=== PATIENT | female | born 1995 | race Caucasian/White ===

== ENCOUNTER → 2021-11-17 20:15 | Observation (INO) | END | disposition home or self-care (01) | LOC: 1NENULAB | PROVIDERS: ADMIT Student in an Organized Health Care Education/Training Program; ATTEND Student in an Organized Health Care Education/Training Program ==

== ENCOUNTER 2021-11-21 14:59 | Observation (INO) | END 2021-11-25 14:59 | disposition home or self-care (01) | LOC: 1NENULAB → 1NENUOBS 11-22 10:06 | PROVIDERS: ADMIT Obstetrics & Gynecology; ATTEND Obstetrics & Gynecology ==

== ENCOUNTER → 2021-11-23 05:10 | Observation (INO) ==
[2021-11-23 05:07] LABS: Amorphous Sediment,Urine Few per hpf (None-Few); Bacteria,Urine Few per hpf (None-Few); Bilirubin,Urine Negative (Negative); Blood,Urine Moderate (Negative); Clarity,Urine Turbid (Clear); Color,Urine Light-Yellow (Yellow); Glucose,Urine (UA) Normal (Normal); Ketones,Urine >150 mg/dL (Negative); Leukocyte Esterase,Urine Small (Negative); Mucus,Urine Few per lpf (None-Few); Nitrite,Urine Negative (Negative); Protein,Urine 30 mg/dL (Neg-Trace); RBC,Urine 0-3 per hpf (0-3); Specific Gravity,Urine 1.013 (1.010-1.025); Sperm,Urine Present per hpf (None Seen); Squamous Epithelial Cell,Urine Moderate per hpf (None-Few); Transitional Epi Cells,Urine Few per hpf (None-Few); Urobilinogen,Urine Normal (Normal)
== END | disposition home or self-care (01) ==
LOC: 1NENULAB
PROVIDERS: ADMIT Obstetrics & Gynecology; ATTEND Obstetrics & Gynecology

== ENCOUNTER 2021-11-26 01:26 | Inpatient (IN) ==
[~2021-11-26 01:26] MED LIST: *HR* Nalbuphine 10 MG/ML AMPUL IV PRN; Azithromycin 500 MG in 0.9 % Sodium Chloride 250 ML IVPB PRN; Famotidine 20 MG/2 ML VIAL IVP PRN; Lidocaine 1% 20 ML MDV INFILT PRN; Metoclopramide 10 MG/2 ML VIAL IVP PRN; Naloxone 0.4 MG/ML INJ IVP PRN; Ondansetron 4 MG/2 ML VIAL IVP PRN
[2021-11-26] MEDS ORDERED: Ringers Solution, Lactated 1,000 ML IVC SCH (01:30)
[2021-11-26] MEDS ORDERED: Epidural Premix (fent/bupiv) 110 ML EP ONE (02:01)
[2021-11-26 02:47] LABS: Amphetamine Screen,Urine Negative ng/mL (Cutoff=1000); Barbiturate Screen,Urine Negative ng/mL (Cutoff=200); Benzodiazepines Screen,Urine Negative ng/mL (Cutoff=200); Cannabinoid Screen,Urine Negative ng/mL (Cutoff = 50); Cocaine Screen,Urine Negative ng/mL (Cutoff= 300); Opiate Screen,Urine Negative ng/mL (Cutoff=300); Phencyclidine Screen,Urine Negative ng/mL (Cutoff=25)
[2021-11-26 02:50] LABS: Basophils % 0.3 %; Eosinophils % 0.4 %; Immature Granulocytes % 1.7 % (0-4); Lymphocytes # 1.5 K/mcL (0.6-4.6); Lymphocytes % 15.8 %; Mean Corpuscular HGB Conc 32.3 g/dL (31.6-35.5); Mean Corpuscular Hemoglobin 27.5 pg (28.0-33.3); Mean Corpuscular Volume 85.4 fL (83.0-100.0); Mean Platelet Volume 10.5 fL (9.4-12.4); Monocytes # 0.5 K/mcL (0.0-1.3); Monocytes % 5.1 %; Neutrophils # 7.4 K/mcL (1.6-8.9); Platelet Count 202 K/mcL (140-400); Red Blood Count 3.63 M/mcL (3.82-4.97); Red Cell Distribution Width 17.1 % (11.5-14.5); Segmented Neutrophils % 76.7 %; White Blood Count 9.7 K/mcL (4.3-11.1)
[2021-11-26] MEDS ORDERED: EPHEDrine 50 MG/ML VIAL IVP PRN (03:06)
[2021-11-26] MEDS ORDERED: Epidural Premix (fent/bupiv) 110 ML EP SCH (03:15)
[2021-11-26] MEDS ORDERED: Oxytocin 30 UNIT/503 ML BAG IVC ONE (07:31)
[2021-11-26] MEDS ORDERED: OXYTOCIN/RINGERS LACTATE 10 UNIT/166.6 ML BAG IVC ONE (12:22)
[2021-11-26] MEDS ORDERED: Benzocaine/Menthol 56 GM AEROSOL SPRAY TP PRN (12:22)
[2021-11-26] MEDS ORDERED: Oxytocin 30 UNIT/503 ML BAG IVC SCH (12:22)
[2021-11-26] MEDS ORDERED: Measles/Mumps/Rubella Vacc 0.5 ML VIAL SQ PRN (12:22)
[2021-11-26] MEDS ORDERED: Ondansetron ODT 4 MG TAB.RAPDIS SL PRN (12:22)
[2021-11-26] MEDS ORDERED: Lanolin 7 G OINT...G. TP PRN (12:22)
[2021-11-26] MEDS: Ibuprofen 600 MG TABLET PO SCH (16:44)
[2021-11-26] MEDS: Acetaminophen 325 MG TABLET PO SCH (16:44)
[2021-11-27] MEDS: Acetaminophen 325 MG TABLET PO SCH ×2 (02:35→09:46)
[2021-11-27] MEDS: Ibuprofen 600 MG TABLET PO SCH ×2 (02:35→09:46)
[2021-11-27 05:51] LABS: Basophils % 0.2 %; Eosinophils # 0.1 K/mcL (0.0-0.6); Eosinophils % 0.5 %; Hematocrit 24.3 % (35.3-44.9); Immature Granulocytes % 1.6 % (0-4); Lymphocytes # 1.6 K/mcL (0.6-4.6); Lymphocytes % 16.1 %; Mean Corpuscular HGB Conc 32.5 g/dL (31.6-35.5); Mean Corpuscular Hemoglobin 27.9 pg (28.0-33.3); Mean Corpuscular Volume 85.9 fL (83.0-100.0); Mean Platelet Volume 10.2 fL (9.4-12.4); Monocytes # 0.5 K/mcL (0.0-1.3); Monocytes % 5.1 %; Neutrophils # 7.4 K/mcL (1.6-8.9); Platelet Count 179 K/mcL (140-400); Red Blood Count 2.83 M/mcL (3.82-4.97); Red Cell Distribution Width 17.3 % (11.5-14.5); Segmented Neutrophils % 76.5 %; White Blood Count 9.7 K/mcL (4.3-11.1)
[2021-11-27 05:54] LABS: Hemoglobin 7.9 g/dL (11.5-15.4)
[2021-11-27 08:15] VITALS: BP 109/71; PULSE 75; TEMP 97.8; O2SAT 98
[2021-11-27] MEDS ORDERED: Prenatal Vit/FA 1 EACH TABLET PO SCH (09:00)
== END 2021-11-27 13:29 | disposition home or self-care (01) | DRG 807 ==
LOC: 1NENULAB → 1NENUOBS 11:55
PROVIDERS: ADMIT Obstetrics & Gynecology; ATTEND Obstetrics & Gynecology